=== PATIENT | male | born 1985 | race Caucasian/White ===

== ENCOUNTER → 2016-11-30 | Outpatient (CLI) | payer MEDICARE, MEDICAID ==
[~2016-11-30] MED LIST: DICL500C PO; DULO30CA PO; NAPR500T3 PO; OXCA600T3 PO; TRAZ100T92 PO
--- NOTE | 2016-11-30 09:17 | Diagnostic Imaging Report ---
PROCEDURE: CT chest with contrast only. TECHNIQUE: Multiple contiguous axial images were obtained through the chest after administration of intravenous contrast. INDICATION: Right axillary mass. FINDINGS: Area marked with skin marker right axillary region shows a relatively well-circumscribed fluid collection measuring 3.8 cm in diameter. This is not separable from the skin surface. This most likely represents a sebaceous cyst. The axillary lymph nodes appear normal. Left axilla appears normal. There is normal enhancement of the aorta and pulmonary arteries. The cervical vessels enhance in a normal fashion. The axillary lesion on the right does not enhance. The lungs are well aerated and clear. No mediastinal or hilar adenopathy of pathologic size. No pleural effusions or pericardial effusions. Bone windows show mild degenerative changes in the thoracic spine with no blastic or lytic lesions. IMPRESSION: 1. There is a 3.8 cm cyst abutting the skin in the right axilla most likely representing a sebaceous cyst. 2. No axillary adenopathy is seen. The lungs are clear. Dictated by: Dictated on workstation # [id number]
== END ==
LOC: RAD 08:28
PROVIDERS: ATTEND Physician Assistant Medical
DX: R22.9 Localized swelling, mass and lump, unspecified (principal); L72.8 Other follicular cysts of the skin and subcutaneous tissue
CPT/HCPCS: 71260; Q9967

== ENCOUNTER → 2016-12-01 | Outpatient (CLI) | payer MEDICARE, MEDICAID ==
[2016-12-01 14:40] VITALS: BP 108/69
--- NOTE | 2016-12-01 14:40 | Urgent Care T Sheet Gen (E) ---
Intake General Temperature (Fahrenheit): 99.2 Pulse: 73 Blood Pressure Systolic: 108 Blood Pressure Diastolic: 69 Respirations: 18 SPO2: 96 Description of Symptoms Patient presents with caregiver complaining of sudden onset of L elbow pain, swelling and redness. First noticed when he woke up this morning. Denies any injury to the area. No history. States he ate hamburgers last night. No alcohol. Does smoke. Took some Tylenol earlier which didn't help much. History of Present Illness Allergies: Coded Allergies: No Known Drug Allergies (Unverified , 03/17/16) Home Meds Reported Medications Trazodone HCl 100 Mg [id number] Mg PO HS 09/25/12 Oxcarbazepine (Trileptal)600 Mg [id number] Mg PO BID 09/25/12 Duloxetine HCl (Cymbalta)30 Mg Capsule.dr30 Mg PO DAILY 09/25/12 Respiratory Constitutional Symptoms: No syptoms reported Musculoskeletal: Joint pain Joint swelling Skin: Change in color All Other Systems Reviewed Remaining Systems: All other systems reviewed with negative findings Past Szsfpdf-Byzfqd-Vkijzh Hx Patient's Social History Alcohol Use: Denies Use Smoking Status: Current every day smoker Recent foreign travel: No Surgeries/Hospitalizations Hospitalization/Surgery Hx: mild intellectual disability autism chronic back pain incontinent of urine Hypertension Smoker Factor 5 Leiden Mutation Respiratory Respiratory History: None Cardiovascular Cardiovascular History: Hypertension Neuro/Muscular Comment: MENTAL RETARDATION Reproductive System Sexually Transmitted Diseases: No Gastrointestinal GI/Endocrine History: None Diabetes Diabetes: No HEENT Impaired Vision: Glasses Hearing Impaired: None Psychosocial Behavior Disorders: Depression Physical Exam Physical Exam General Appearance: WD/WN Mild distress (appears in pain) Skin Exam: Other (redness, warmth and swelling noted to the L elbow, mostly along the posterior aspect) Extremity Exam: Full range of motion Tenderness (along the bursa. not tender over the joint line, medial or lateral epicondyles) Swelling Other (patient has full, active ROM in the L elbow however flexion causes pain. forearm pronation and supination doesn't cause pain) Departure Urgent Care Impression Impression: Primary Impression: Olecranon bursitis of left elbow Departure Disposition: HOME OR SELF-CARE Condition: Stable Referrals: Braeden Faustin (PCP) Scripts Naproxen 500 Mg [id number] Mg PO BID Anti-Inflammatory #10 TAB Ref 0 Prov:MATT BATISTA 12/01/16 Dicloxacillin Sodium 500 Mg [id number] Mg PO QID #28 CAP Prov:MATT BATISTA 12/01/16 End of report . MATT BATISTA Dec 01, 2016 14:40
== END ==
LOC: MHUC 14:01
PROVIDERS: ATTEND Physician Assistant
DX: M70.22 Olecranon bursitis, left elbow (principal)
CPT/HCPCS: 99213

== ENCOUNTER → 2016-12-21 | Outpatient (CLI) | payer MEDICARE, MEDICAID ==
[2016-12-21 15:19] VITALS: BP 111/71
--- NOTE | 2016-12-21 15:19 | Urgent Care T Sheet Gen (E) ---
Intake General Temperature (Fahrenheit): 98.9 Pulse: 77 Blood Pressure Systolic: 111 Blood Pressure Diastolic: 71 Respirations: 20 SPO2: 97 Description of Symptoms Patient presents with his caregiver complaining of sore throat since last night. No fever. Patient was last seen at on December 01 for similar symptoms. At that time, he was treated with abx because of length of illness. At that time, I suggested he use Flonase in addition to his Claritin since his allergies were flared however he refused. No meds to treat his throat pain. History of Present Illness Allergies: Coded Allergies: No Known Drug Allergies (Unverified , 03/17/16) Home Meds Active Scripts Naproxen 500 Mg [id number] Mg PO BID Anti-Inflammatory #10 TAB Ref 0 Prov:MATT BATISTA 12/01/16 Dicloxacillin Sodium 500 Mg [id number] Mg PO QID #28 CAP Prov:MATT BATISTA 12/01/16 Reported Medications Trazodone HCl 100 Mg [id number] Mg PO HS 09/25/12 Oxcarbazepine (Trileptal)600 Mg Hjccle583 Mg PO BID 09/25/12 Duloxetine HCl (Cymbalta)30 Mg Capsule.dr30 Mg PO DAILY 09/25/12 Respiratory Constitutional Symptoms: No syptoms reported EENTM: Nose Congestion Throat pain Respiratory: Cough Cardiovascular: No symptoms reported Gastrointestinal/Abdominal: No symptoms reported All Other Systems Reviewed Remaining Systems: All other systems reviewed with negative findings Past Xuaimvz-Oofjzi-Vcgcww Hx Patient's Social History Alcohol Use: Denies Use Smoking Status: Current every day smoker Recent foreign travel: No Surgeries/Hospitalizations Hospitalization/Surgery Hx: mild intellectual disability autism chronic back pain incontinent of urine Hypertension Smoker Factor 5 Leiden Mutation Respiratory Respiratory History: None Cardiovascular Cardiovascular History: Hypertension Neuro/Muscular Comment: MENTAL RETARDATION Reproductive System Sexually Transmitted Diseases: No Gastrointestinal GI/Endocrine History: None Diabetes Diabetes: No HEENT Impaired Vision: Glasses Hearing Impaired: None Psychosocial Behavior Disorders: Depression Physical Exam Physical Exam General Appearance: WD/WN No apparent distress Eyes, Ears, Nose, Throat Ex: TMs normal Pharyngeal erythema (red streaks, cobblestone appearance with clear, thin PND) Other (clear thin nasal drainage, pale nasal turbinates) Neck Exam: SuppleNo Lymphadenopathy Respiratory Exam: Lungs clear Normal breath sounds Cardiovascular Exam: Regular rate, rhythm Departure Urgent Care Impression Impression: Primary Impression: Seasonal allergies Qualified Code: J30.1 - Allergic rhinitis due to pollen Additional Impression: Allergic pharyngitis Departure Disposition: 01 HOME OR SELF-CARE Condition: Stable Referrals: Braeden Faustin (PCP) Additional Instructions: I still believe the patient's symptoms are related to his allergies. I asked him again about using Flonase and today he agrees. I have also started him on Singulair in addition to his Claritin. Robitussin as needed for cough/congestion Tylenol as needed for pain Return as needed. If new meds are helpful, will need to see PCP for refills. Patient's caregiver understands DC instructions. All questions were answered. End of report . MATT BATISTA December 21, 2016 15:19
== END ==
LOC: MHUC 14:30
PROVIDERS: ATTEND Physician Assistant
DX: J30.1 Allergic rhinitis due to pollen (principal)
CPT/HCPCS: 99213